=== PATIENT | male | born 1945 | race Two or more races ===

== ENCOUNTER 2022-08-30 16:22 | Emergency (ER) | payer MEDICARE, OTHER ==
[~2022-08-30] VITALS: Ht 170.2 cm; Wt 77.1 kg
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
[2022-08-30] MEDS ORDERED: KETOROLAC TROMETHAMINE INJ 30 MG/ML VIAL IV ONE (17:00)
--- NOTE | 2022-08-30 17:01 | NUR ---
TAKEN TO CT
[2022-08-30] MEDS ORDERED: KETOROLAC TROMETHAMINE 15 MG/ML VIAL ONE (17:29)
[2022-08-30] MEDS ORDERED: KETO10TA2 PO (17:36)
--- NOTE | 2022-08-30 17:49 | NUR ---
Patient discharged to home in stable condition. Written and verbal after care instructions given. Patient verbalizes understanding of instruction.
--- NOTE | 2022-08-30 17:49 | NUR ---
IV removed. Catheter intact and site benign. Pressure and 4x4 applied to site. No bleeding noted.
[2022-08-30 17:51] VITALS: BP 101/81
== END 2022-08-30 17:54 | disposition home or self-care (01) ==
LOC: ER 16:46
DX: S23.3XXA Sprain of ligaments of thoracic spine, initial encounter (principal); S13.4XXA Sprain of ligaments of cervical spine, initial encounter; V89.2XXA Person injured in unspecified motor-vehicle accident, traffic, initial encounter; Y93.89 Activity, other specified; Y92.89 Other specified places as the place of occurrence of the external cause; Y99.8 Other external cause status
CPT/HCPCS: 99285; 72125; 96372; 70450; 72128; J1885